=== PATIENT | female | born 1940 | race Caucasian/White ===

== ENCOUNTER 2023-07-20 14:14 | Outpatient (AMB) | payer MEDICARE, OTHER, SELFPAY ==
--- NOTE | 2023-07-20 14:15 | A.OFFVIS_ITS ---
Intake Vital Signs 07/20/23 14:28 Height 5 ft 2 in Weight 173 lb BMI 31.6 BP 140/86 H Blood Pressure Location Lt brachial Position Sitting Respiration 16 Pulse 75 Pulse Source Pulse Oximeter Pulse Oximetry (%) 95 Oxygen Delivery Method Room Air Intake Visit Reasons: Back pain - Confirmed Intake Note: Patient comes in for initial visit was referred by primary care. Reports pain 01/22. Allergies prochlorperazine [From Compazine] Allergy (Mild, Verified 07/20/23 14:27) Swelling HPI HPI Comments History of Present Illness Details [place] is very pleasant 83 years old female who presents in my office with complains on pain in the lower lumbar spine across the lumbar spine with radiation into the bilateral hips and not below that level. She reports that she is started to feel this pain 1 year ago. She was told that she is suffering from spondylolisthesis in deterioration of the spinal discs. She reports that laying down hurts the most. She reports no pain increase with prolonged sitting. Backwards flexing hurts her more than flexing forward. Her pain onset was gradual. She can not sleep normally because of her pain she can not do activities of daily living she can somewhat take care of herself but she can not function normally. She is retired individual. She needs walker for ambulation. Weather changes in movements aggravate her pain. Pain is worse in the evening and less severe during the daytime. In terms of tissue damage she describes her pain is stabbing, lancinating, sharp, cutting, lacerating, tiring, exhausting. She is currently taking oxycodone 10 mg t.i.d. and ibuprofen 600 mg t.i.d. for her pain. She had diskectomy potentially partial in 2003. She had MRI at [facility] results of which dictated as below. She had severe spinal canal stenosis on that MRI. She had physical therapy for the last 6 months and she performs home exercise program she found no helps. Dr. Kimball from [facility] performed all according to the patient ?injections on the record known to the Medicine ?. She denies any help from the injection. She reports that she will be able to provide us description of the injections she received. Her past medical history significant for hypertension. She denies pacemaker or any other implantable devices. She has history of bilateral total hip replacement and she had diskectomy as above. She denies smoking cigarettes drinking alcohol or using recreational drugs. PFSH Social History (Updated 07/20/23 @ 14:28 by Shawnee Seth) Alcohol intake: never Patient Tobacco Use Status: Never used Tobacco Review of Systems Const Reports no additional complaints ENT Reports Normal hearing present Card Reports no additional complaints Resp Reports no additional complaints GI Reports no additional complaints Musc Reports as per HPI Neuro Reports no additional complaints, Reports Normal hearing present, Denies Abnormal speech present, Denies confusion and Denies Sensory deficit (Neuro) Psych Reports no additional complaints and Denies confusion Physical Exam Vital Signs: Last Vital Signs Pulse 75 07/20/23 14:28 Resp 16 07/20/23 14:28 BP 140/86 H 07/20/23 14:28 Pulse Ox 95 07/20/23 14:28 Oxygen Delivery Method Room Air 07/20/23 14:28 BMI result Body Mass Index 31.6 Const General: no acute distress; No confusion Orientation/consciousness: patient oriented x3 and No confusion Eyes General: appearance normal, both eyes and all related structures Pupils: Equal, round and reactive pupils present EOM: EOMs intact bilaterally Neck Neck: Yes full ROM Chest Chest palpation & inspection: normal inspection of the chest Resp Effort & Inspection: normal respiratory effort, able to speak in complete sentences, normal respiratory pattern, no audible wheezes and no cough Cardio Jugular venous distension: no JVD GI Inspection: Yes normal to inspection Back/Spine/Pelvis Other: Demonstrate objective weakness of bilateral lower extremities. Able to walk only with the help of the walker. Admits frequent bilateral lower extremities giving up under her. SLR is positive on the left. Flexing forward and flexing backwards both aggravate her pain however flexing backwards aggravate her pain more than flexing forward. Coughing increases her pain. Straining down increases her pain. Lisandro test is positive bilaterally more on the left and less on the right however patient states that she received sacroiliac joint injections in the past and those were not helpful for her pain. Neuro General: patient oriented x3, gait normal and No confusion Cranial nerves: Yes CN's II-XII intact bilaterally, Yes Equal, round and reactive pupils present, Yes Normal hearing present and Yes Ability to bilaterally elevate shoulders present Speech: No Abnormal speech present Gait exam (Neuro): Normal gait present Motor exam (neuro): 5/5 motor strength present throughout Sensory Exam: No Sensory deficit (Neuro) Extrem General: No pedal edema Psych Speech and movement: Normal speech and movement present Affect: normal affect Attitude: cooperative Thought process: Normal thought process present Thought content: Normal thought content present Insight: Good insight present (Psych) Judgement: Good judgement present (Psych) Results Reviewed Results Reviewed: EXAMINATION: MR LUMBAR SPINE WITHOUT CONTRAST CLINICAL INFORMATION: evere low back pain. History of surgery. Lumbar radiculopathy. COMPARISON: Lumbar spine MRI 02/04/2020. TECHNIQUE: MRI of the lumbar spine was obtained using routine sequences without contrast. FINDINGS: There is transitional lumbosacral anatomy. There is a hypoplastic disc at L5-S1 which is seen on series 8 image 37/44. There is mild anterolisthesis of L1 on L2 and L2 on L3. Anterolisthesis of L3 on L4 measures 6 mm. There is trace anterolisthesis of L4 on L5. There is a hemangioma in the L1 vertebral body. 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 The distal spinal cord appears normal. The conus medullaris terminates normally at the upper L1 level. There is diffuse fatty atrophy of the paraspinal musculature. Renal cysts are noted. SPINAL LEVELS: L1-L2: Disc bulging with l igamentum flavum infolding and facet arthropathy resulting in mild spinal canal stenosis. Mild left neural foraminal stenosis, similar to prior. L2-L3: Disc bulging with ligamentum flavum infolding and facet arthropathy. Mild right neural foraminal stenosis without interval change. L3-L4: Grade 1 anterolisthesis with disc bulging, ligamentum flavum infolding, severe facet arthropathy resulting in unchanged severe spinal canal stenosis with compression of the thecal sac and traversing nerve roots. Moderate to severe bilateral neural foraminal stenosis with compression of both exiting L3 nerve roots, similar to prior. L4-L5: Posterior decompression changes. Disc bulging with severe facet arthropathy. No spinal canal stenosis. Mild narrowing of the neural foramina with unchanged abutment of both exiting L4 nerve root segments. L5-S1: Disc bulging with severe facet arthropathy. No spinal canal stenosis. Mild right neural foraminal stenosis without foraminal nerve root compression. Assessment & Plan Assessment & Plan (1) Spinal stenosis, lumbar: Code(s): M48.061 - Spinal stenosis, lumbar region without neurogenic claudication (2) Spondylosis of lumbar region without myelopathy or radiculopathy: Code(s): M47.816 - Spondylosis without myelopathy or radiculopathy, lumbar region (3) Spondylolisthesis, lumbar region: Code(s): M43.16 - Spondylolisthesis, lumbar region (4) Postlaminectomy syndrome: Code(s): M96.1 - Postlaminectomy syndrome, not elsewhere classified (5) Chronic pain syndrome: Code(s): G89.4 - Chronic pain syndrome Plan 1. I will request the patient to see me in 3 weeks. At that time she will bring me all the injections she received from [facility] Dr. Kimball. However I do not expect to find anything revealing there most likely all the injections were tried and were not helpful for the patient. 2. She has very advanced spinal stenosis at L3-L4 level. She went to Dr. Garcia and she was denied to have a surgery. She has objective weakness of bilateral lower extremities. I am not sure if she is a good candidate for the surgery but at least in my opinion she seemed to be healthy enough to withstand the surgery. If she agrees with me I will schedule her for an appointment with our neurosurgical department. 3. I discussed spinal cord stimulator with the patient. I gave her [facility] brochure. I will discuss further treatment if the patient after reading the brochure will be interested in the procedure. I would need to be sure that the patient either does not want to accept any surgical interventions or surgery for her spinal canal stenosis is not indicated for her. Patient Instructions: I here by testify that I spent 46 minutes in conversation with this patient as well as planning her care evaluating her prior records and organizing this note. Coding Level of Care Code New Pt Level 4 (94558) Diagnoses Spinal stenosis, lumbar M48.061 Spondylosis of lumbar region without myelopathy or radiculopathy M47.816 Spondylolisthesis, lumbar region M43.16 Postlaminectomy syndrome M96.1 Chronic pain syndrome G89.4
[2023-07-20 14:28] VITALS: BP 140/86; PULSE 75; RESP 16; O2SAT 95; BMI 31.6
== END 2023-07-20 14:50 | disposition home or self-care (01) ==
PROVIDERS: PCP Internal Medicine; Visit Provider Anesthesiology
DX: M48.061 Spinal stenosis, lumbar region without neurogenic claudication (principal); M47.816 Spondylosis without myelopathy or radiculopathy, lumbar region; M43.16 Spondylolisthesis, lumbar region; M96.1 Postlaminectomy syndrome, not elsewhere classified; G89.4 Chronic pain syndrome
CPT/HCPCS: 99204

== ENCOUNTER → 2023-07-20 14:14 | Outpatient (BNVA) | payer MEDICARE, OTHER, SELFPAY | PROVIDERS: PCP Internal Medicine; Visit Provider Anesthesiology | DX: M48.061 Spinal stenosis, lumbar region without neurogenic claudication (principal); M47.816 Spondylosis without myelopathy or radiculopathy, lumbar region; M43.16 Spondylolisthesis, lumbar region; M96.1 Postlaminectomy syndrome, not elsewhere classified; G89.4 Chronic pain syndrome | CPT/HCPCS: 99202 ==